=== PATIENT | male | born 1950 | race Caucasian/White ===

== ENCOUNTER 2024-09-05 16:03 | Emergency (ER) | payer MEDICARE, SELFPAY ==
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
[2024-09-05 16:10] VITALS: BP 139/78; BP 149/79; PULSE 65; RESP 15; RESP 18; TEMP 36.6; O2SAT 100; O2SAT 98
--- NOTE | 2024-09-05 16:10 | ECG_ITS ---
Test Date: 2024-09-05 16:12:12 Measurements Intervals [place] Rate: 63 P: 70 ID: [id number] QRS: 34 QRSD: 99 T: 32 QT: 405 QTc: 417 Interpretive Statements SINUS RHYTHM NORMAL ECG No previous ECG available for comparison Electronically Signed On 09-06-2024 10:38:55 CDT by Altaf Alonzo M.D.
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
[2024-09-05 16:31] VITALS: BP 155/86; PULSE 66; RESP 14; O2SAT 98
[2024-09-05] MEDS: HYDROmorphone HCL INJ (*CRX) 1 MG/ML SYR 0.5 MG IV PUSH (16:41)
[2024-09-05] MEDS: ONDANSETRON INJ 4 MG/2 ML VIAL IV PUSH (16:41)
[2024-09-05 17:03] LABS: Estimated CRCL calculation 65 ml/min; Estimated Glomerular Filt Rate 59
[2024-09-05] MEDS: SODIUM CHLORIDE 0.9% IV 1,000 ML 999 ML IV CONT (17:15)
[2024-09-05] MEDS: TETANUS,DIPHTHERIA,AC PERTUSSIS ADULT (0.5 ML) BOOSTRIX IM (17:15)
[2024-09-05 17:34] LABS: Basophils Absolute Auto 0.1 K/mm3 (0.0-0.1); Basophils Percent Auto 1.2 % (0.2-1.2); Eosinophils Absolute Auto 0.6 K/mm3 (0-0.3); Eosinophils Percent Auto 8.6 % (0-4.4); Hematocrit 37.2 % (42.0-52.0); Hemoglobin 11.9 g/dL (14.0-18.0); Immature Granulocyte Absolute 0.02 K/mm3 (0.00-0.031); Immature Granulocyte Percent A 0.3 % (0-0.5); Lymphocytes Absolute Auto 1.62 K/mm3 (0.9-3.2); Lymphocytes Percent Auto 22.4 % (18.3-44.2); Mean Corpuscular Hemoglobin 28.1 pg (26-34); Mean Corpuscular Volume 87.9 fl (80-100); Mean Platelet Volume 10.9 fl (7.4-10.4); Monocytes Absolute Auto 0.7 K/mm3 (0.1-0.6); Monocytes Percent Auto 9.7 % (2.6-8.5); Neutrophils Absolute Auto 4.2 K/mm3 (1.3-6.7); Neutrophils Percent Auto 57.8 % (45.5-73.1); Platelet Count Result 193 k/mm3 (150-375); Red Blood Count 4.23 M/mm3 (4.6-6.20); Red Cell Distribution Width 14.2 % (11.5-14.5); White Blood Count 7.2 K/mm3 (4.5-10.0)
[2024-09-05 17:40] LABS: Alanine Aminotransferase 51 U/L (6-50); Albumin Level 4.3 g/dL (3.5-5.1); Alkaline Phosphatase 39 U/L (38-126); Anion Gap 9 mmol/L (4-12); Aspartate Amino Transferase 68 U/L (17-59); Bilirubin,Total 0.3 mg/dL (0.2-1.3); Blood Urea Nitrogen 30 mg/dL (9-20); Calcium 9.5 mg/dL (8.4-10.2); Carbon Dioxide 26 mmol/L (22-30); Chloride 103 mmol/L (98-107); Estimated CRCL calculation 85 ml/min; Estimated Glomerular Filt Rate > 60; Glucose 104 mg/dL (65-110); Potassium 4.2 mmol/L (3.4-5.0); Sodium 138 mmol/L (137-145)
[2024-09-05 17:45] VITALS: BP 139/78; PULSE 66; RESP 13; O2SAT 99
[2024-09-05 18:29] VITALS: PULSE 62; RESP 13; O2SAT 100
[2024-09-05 18:32] VITALS: BP 147/84; PULSE 61; RESP 14; O2SAT 100
[2024-09-05 19:00] VITALS: BP 152/84; PULSE 66; RESP 14; O2SAT 100
== END 2024-09-05 19:25 | disposition home or self-care (01) ==
PROVIDERS: Emergency Provider Emergency Medicine
DX: S00.83XA Contusion of other part of head, initial encounter (principal); S43.102A Unspecified dislocation of left acromioclavicular joint, initial encounter; Z23 Encounter for immunization; I10 Essential (primary) hypertension; E11.9 Type 2 diabetes mellitus without complications; E78.5 Hyperlipidemia, unspecified; K21.9 Gastro-esophageal reflux disease without esophagitis; Z86.73 Personal history of transient ischemic attack (TIA), and cerebral infarction without residual deficits; Z90.79 Acquired absence of other genital organ(s); Z79.82 Long term (current) use of aspirin; Z79.899 Other long term (current) drug therapy; K46.9 Unspecified abdominal hernia without obstruction or gangrene; W31.89XA Contact with other specified machinery, initial encounter
CPT/HCPCS: 36415; 70450; 71260; 72125; 73030; 74177; 80053; 85025; 90471; 90715; 93005; 96361; 96374; 96375; 99284; A4565; J1171; J2405; J7030; Q9967